=== PATIENT | female | born 1965 | race Caucasian/White ===

== ENCOUNTER 2017-10-17 03:48 | Emergency (ER) | payer SELFPAY ==
--- NOTE | 2017-10-17 04:03 | ED Physician Documentation ---
PD HPI CHEST PAIN - Stated complaint Stated Complaint: SOA,LT BACK,LT SHOULDER PAIN - Chief complaint Chief Complaint: Cardiac - History obtained from History obtained from: Patient - History of Present Illness Timing - onset: Yesterday Timing - onset during: Light activity (carrying basket of laundry) Timing - duration: Minutes Timing - details: Abrupt onset, Intermittant (will last for several minutes at a time. This evening had onset while lying in bed and it lasted about an hour. Sharp pain left chest radiating to back of neck and shoulder. Some dyspnea and pleuritic component, but not strictly with breathing. Some tenderness of chestwall, and left posterior neck hurts with ROM.) Quality: Aching, Sharp Location: Left chest Radiation: Neck (back of neck), Left upper extremity (shoulder) Improved by: Rest Worsened by: Inspiration, Movement (somewhat with neck movement.), Palpation ( there is some tenderness left chestwall parasternal.) Associated symptoms: Shortness of air, Nausea. No: Diaphoresis, Vomiting, Feeling faint / dizzy, General Weakness, Palpitations, Cough Similar symptoms before: Has not had sx before Recently seen: Not recently seen Review of Systems Constitutional: denies: Fever, Chills Nose: denies: Rhinorrhea / runny nose, Congestion Throat: denies: Sore throat Cardiac: reports: Chest pain / pressure, Calf pain (some about 2 weeks ago for few days, without obvious cause. No current problems.). denies: Palpitations, Pedal edema Respiratory: reports: Dyspnea. denies: Cough, Hemoptysis, Wheezing GI: reports: Nausea. denies: Abdominal Pain, Vomiting, Diarrhea Skin: denies: Rash, Lesions Neurologic: reports: Generalized weakness. denies: Focal weakness, Numbness PD PAST MEDICAL HISTORY - Past Medical History Cardiovascular: None Respiratory: None Neuro: None Endocrine/Autoimmune: None - Present Medications Home Medications: Ambulatory Orders Medication Instructions Recorded Confirmed HYDROcod/ACETAM 5/325 [[place] 5/325] 1 tab PO Q6H PRN #15 tablet 10/17/17 Methocarbamol [Robaxin] 500 mg PO Q6H PRN #20 tablet 10/17/17 Naproxen [Naprosyn] 500 mg PO BID #20 tablet 10/17/17 - Allergies Allergies/Adverse Reactions: Allergies Allergy/AdvReac Type Severity Reaction Status Date / Time Penicillins AdvReac Hives Verified 10/17/17 04:02 - Family History Family history: denies: CAD, Sudden , Venous thromboembolism PD ED PE NORMAL - Vitals Vital signs reviewed: Yes - General General: Alert and oriented X 3, Well developed/nourished, Other (seems somewhat in pain, not too distressed. ) - HEENT HEENT: Ears normal, Pharynx benign - Neck Neck: Supple, no meningeal sign, No adenopathy - Cardiac Cardiac: RRR, No murmur - Respiratory Respiratory: No respiratory distress, Clear bilaterally, Other (left chestwall tenderness at lower sternal border) - Abdomen Abdomen: Soft, Non tender - Back Back: No CVA TTP, No spinal TTP - Derm Derm: Normal color, Warm and dry - Extremities Extremities: No deformity, No tenderness to palpate, Normal ROM s pain, No edema , No calf tenderness / cord - Neuro Neuro: Alert and oriented X 3, No motor deficit, Normal speech Results - Vitals Vitals: Vital Signs - 24 hr 10/17/17 10/17/17 03:55 04:19 Temperature 36.5 C Heart Rate 74 Respiratory 22 Rate Blood Pressure 175/126 H Blood Pressure 178/104 H [Left] O2 Saturation 99 Oxygen O2 Source Room air - EKG (time done) 03:55 Rate: Rate (enter#) (71) Rhythm: NSR [place]: Normal Intervals: Normal [place] QRS: Normal Ischemia: Normal ST segments. No: ST elevation c/w ischemia, ST depression - Labs Labs: Laboratory Tests 10/17/17 10/17/17 10/17/17 04:05 04:05 04:05 WBC 11.9 H RBC 4.74 Hgb 15.3 Hct 44.7 MCV 94.2 MCH 32.2 H MCHC 34.2 RDW 13.0 Plt Count 257 MPV 8.2 Neut # 5.8 Lymph # 4.9 H Hale # 0.9 Eos # 0.2 Baso # 0.1 Absolute Nucleated RBC 0.01 Nucleated RBC % 0.1 D-Dimer 284.7 H Sodium 140 Potassium 3.9 Chloride 107 Carbon Dioxide 19 L Anion Gap 14.0 H BUN 18 Creatinine 1.0 Estimated GFR (MDRD) 59 L Glucose 132 H Calcium 10.2 Total Bilirubin 0.4 AST 17 ALT 19 Alkaline Phosphatase 64 Troponin I Total Protein 7.7 Albumin 4.3 Globulin 3.4 Albumin/Globulin Ratio 1.3 Lipase 30 10/17/17 04:05 WBC RBC Hgb Hct MCV MCH MCHC RDW Plt Count MPV Neut # Lymph # Hale # Eos # Baso # Absolute Nucleated RBC Nucleated RBC % D-Dimer Sodium Potassium Chloride Carbon Dioxide Anion Gap BUN Creatinine Estimated GFR (MDRD) Glucose Calcium Total Bilirubin AST ALT Alkaline Phosphatase Troponin I < 0.04 Total Protein Albumin Globulin Albumin/Globulin Ratio Lipase - Rads (name of study) chest Radiology: Prelim report reviewed, EMP read contemporaneously (no acute process) PD MEDICAL DECISION MAKING - ED course Complexity details: reviewed results, considered differential, d/w patient Departure - Departure Disposition: Home, Self Care Clinical Impression: Left-sided chest wall pain Condition: Stable Record reviewed to determine appropriate education?: Yes Instructions: ED Strain Chest Wall Prescriptions: HYDROcod/ACETAM 5/325 [[place] 5/325] 1 tab PO Q6H PRN #15 tablet PRN Reason: Pain Methocarbamol [Robaxin] 500 mg PO Q6H PRN #20 tablet PRN Reason: Spasms Naproxen [Naprosyn] 500 mg PO BID #20 tablet Comments: The tests we did here did not show any signs of heart lung or vascular problems. Presume it is musculoskeletal and treated with anti-inflammatories such as Aleve for naproxen or ibuprofen 2-3 times daily. Add Robaxin muscle relaxant as the worse episodes may relate to spasms. Add Tylenol or hydrocodone if needed for pains. Recheck if not improved over the next 3-5 days with tapering of the amount of pain during that time. Recheck if other symptoms develop along with this.
[2017-10-17] MEDS ORDERED: MORPHINE 10 MG/ML VIAL IVP STA (04:29)
[2017-10-17] MEDS ORDERED: diazePAM INJ 5 MG/ML SYRINGE IVP STA (04:29)
[2017-10-17] MEDS ORDERED: KETOROLAC 60 MG/2 ML VIAL IVP STA (04:29)
[2017-10-17] MEDS ORDERED: LORazepam 2 MG/ML VIAL IVP STA (04:35)
[2017-10-17] MEDS ORDERED: LORazepam 2 MG/ML VIAL ONE (04:40)
[2017-10-17] MEDS ORDERED: MORPHINE 10 MG/ML VIAL ONE (04:41)
[2017-10-17] MEDS ORDERED: KETOROLAC 30 MG/ML VIAL ONE (04:41)
[2017-10-17 04:42] LABS: BASOPHILS # (AUTO) 0.1 10^3/uL (0.0-0.1); BASOPHILS % (AUTO) 0.6 %; EOSINOPHILS # (AUTO) 0.2 10^3/uL (0.0-0.7); EOSINOPHILS % (AUTO) 1.3 %; HCT - HEMATOCRIT 44.7 % (37.0-47.0); HGB - HEMOGLOBIN 15.3 g/dL (12.0-16.0); LYMPHOCYTES # (AUTO) 4.9 10^3/uL (1.5-3.5); LYMPHOCYTES % (AUTO) 41.6 %; MEAN CORPUSCULAR HEMOGLOBIN 32.2 pg (27.0-31.0); MEAN CORPUSCULAR HGB CONC 34.2 g/dL (32.0-36.0); MEAN CORPUSCULAR VOLUME 94.2 fL (81.0-99.0); MEAN PLATELET VOLUME 8.2 fL (7.9-10.8); MONOCYTES # (AUTO) 0.9 10^3/uL (0.0-1.0); MONOCYTES % (AUTO) 7.3 %; NEUTROPHILS # (AUTO) 5.8 10^3/uL (1.5-6.6); NEUTROPHILS % (AUTO) 49.2 %; NUCLEATED RED BLOOD CELLS AUTO 0.1 /100WBC; RED BLOOD COUNT 4.74 10^6/uL (4.20-5.40); UNCORRECTED WHITE BLOOD COUNT 11.9 x10^3/uL; WHITE BLOOD COUNT 11.9 x10^3/uL (4.8-10.8)
[2017-10-17 04:48] LABS: ALBUMIN/GLOBULIN RATIO 1.3 (1.0-2.2); BILIRUBIN,TOTAL 0.4 mg/dL (0.2-1.0); CALCIUM 10.2 mg/dL (8.5-10.3); POTASSIUM 3.9 mmol/L (3.5-5.0); TOTAL PROTEIN 7.7 g/dL (6.7-8.2)
--- NOTE | 2017-10-17 05:03 | XRAY Preliminary Report ---
Exam: XR CHEST 2 VIEW PA/LAT IMPRESSION: No acute cardiopulmonary abnormality demonstrated. [facility] SITE ID: [id number]
--- NOTE | 2017-10-17 05:06 | XRAY Report ---
EXAM: CHEST RADIOGRAPHY EXAM DATE: 10/17/2017 04:45 AM. CLINICAL HISTORY: Left chest pain today. COMPARISON: None. TECHNIQUE: 2 views. FINDINGS: Lungs/Pleura: Small linear scarring within the lung bases. No focal opacities evident. No pleural eff usion. No pneumothorax. Normal volumes. Mediastinum: Heart and mediastinal contours are unremarkable. Other: Right upper quadrant clips indicate prior cholecystectomy. IMPRESSION: No acute cardiopulmonary abnormality demonstrated. [facility] Referring Provider Line: [phone] SITE ID: [id number]
[2017-10-17] MEDS ORDERED: HYDROcod/ACET 5/325 Prepack 6 PO ONE ×2 (05:17→05:27)
[2017-10-17 05:28] VITALS: BP 161/98
== END 2017-10-17 05:41 | disposition home or self-care (01) ==
LOC: ED 03:48
DX: R07.9 Chest pain, unspecified (principal)
CPT/HCPCS: 36415; 71020; 80053; 83690; 84484; 85025; 85379; 93005; 96374; 96375; 99284; J2060

== ENCOUNTER 2017-10-20 14:34 | Emergency (ER) | payer SELFPAY ==
--- NOTE | 2017-10-20 15:20 | XRAY Preliminary Report ---
Exam: XR CHEST 1 VIEW IMPRESSION: No radiographically apparent acute abnormality in the chest. No significant change from p rior. [facility] SITE ID: [id number]
--- NOTE | 2017-10-20 15:22 | XRAY Report ---
EXAM: CHEST RADIOGRAPHY EXAM DATE: 10/20/2017 03:09 PM. CLINICAL HISTORY: Chest pain. COMPARISON: 10/17/2017. TECHNIQUE: 1 view. FINDINGS: Lungs/Pleura: Mild left basilar atelectasis versus scarring. No focal consolidation evident. No pleur al effusion. No pneumothorax. Mediastinum: Within exam limitations, the cardiomediastinal contour is normal. Other: None. IMPRESSION: No radiographically apparent acute abnormality in the chest. No significant change from p rior. [facility] Referring Provider Line: [phone] SITE ID: [id number]
[2017-10-20 15:23] LABS: BASOPHILS % (AUTO) 0.5 %; EOSINOPHILS # (AUTO) 0.1 10^3/uL (0.0-0.7); EOSINOPHILS % (AUTO) 1.1 %; HCT - HEMATOCRIT 42.2 % (37.0-47.0); HGB - HEMOGLOBIN 14.6 g/dL (12.0-16.0); LYMPHOCYTES # (AUTO) 3.4 10^3/uL (1.5-3.5); LYMPHOCYTES % (AUTO) 36.3 %; MEAN CORPUSCULAR HEMOGLOBIN 32.6 pg (27.0-31.0); MEAN CORPUSCULAR HGB CONC 34.6 g/dL (32.0-36.0); MEAN CORPUSCULAR VOLUME 94.2 fL (81.0-99.0); MEAN PLATELET VOLUME 7.6 fL (7.9-10.8); MONOCYTES # (AUTO) 0.6 10^3/uL (0.0-1.0); MONOCYTES % (AUTO) 6.7 %; NEUTROPHILS # (AUTO) 5.2 10^3/uL (1.5-6.6); NEUTROPHILS % (AUTO) 55.4 %; NUCLEATED RED BLOOD CELLS AUTO 0.1 /100WBC; RED BLOOD COUNT 4.48 10^6/uL (4.20-5.40); RED CELL DISTRIBUTION WIDTH 13.2 % (12.0-15.0); UNCORRECTED WHITE BLOOD COUNT 9.4 x10^3/uL; WHITE BLOOD COUNT 9.4 x10^3/uL (4.8-10.8)
[2017-10-20 15:37] LABS: ALBUMIN/GLOBULIN RATIO 1.2 (1.0-2.2); BILIRUBIN,TOTAL 0.5 mg/dL (0.2-1.0); CALCIUM 8.6 mg/dL (8.5-10.3); CREATININE 0.7 mg/dL (0.4-1.0); POTASSIUM 3.7 mmol/L (3.5-5.0); TOTAL PROTEIN 7.1 g/dL (6.7-8.2)
[2017-10-20] MEDS ORDERED: IOPAMIDOL-300 100 ML VIAL ONE (15:58)
--- NOTE | 2017-10-20 16:42 | ED Physician Documentation ---
PD HPI CHEST PAIN - Stated complaint Stated Complaint: CHEST PAIN - Chief complaint Chief Complaint: Cardiac - History obtained from History obtained from: Patient, Family - History of Present Illness Timing - onset: How many days ago (4) Timing - onset during: Rest Timing - duration: Days (4) Timing - details: Gradual onset Pain level max: 0 Pain level now: 0 Quality: Pressure, Pain Location: Left chest Radiation: Neck, Back Improved by: Rest Worsened by: Exertion Associated symptoms: Shortness of air (with exertion), Nausea, Feeling faint / dizzy, General Weakness. No: Diaphoresis, Vomiting, Palpitations, Cough Similar symptoms before: No diagnosis Recently seen: Clinic (seen here several days ago for same.) - Additional information Additional information: Patient is a 52-year-old female who smokes approximately 1 pack per day. No other medical problems, but does not see a doctor. Has had left-sided chest pain for the past 3 days. Describes the pain as heavy and pressure-like. It tends to come on during exertion and resolved with rest. She states that initially when she was seen and was taken about an hour to resolve, however it has become more frequent and resolves quicker though she is taking Vicodin for it as well. Does not recall any injuries. No recent travel. No recent surgery or immobilization. Does not have any history of cardiac disease in the past. Review of Systems Ten Systems: 10 systems reviewed and negative Constitutional: denies: Fever, Chills Ears: denies: Ear pain Nose: denies: Rhinorrhea / runny nose, Congestion Throat: denies: Sore throat Cardiac: denies: Palpitations Respiratory: denies: Cough, Hemoptysis, Wheezing GI: denies: Abdominal Pain, Nausea, Vomiting, Diarrhea Skin: denies: Rash Musculoskeletal: denies: Neck pain, Back pain Neurologic: denies: Headache PD PAST MEDICAL HISTORY - Past Medical History Cardiovascular: None Respiratory: None Neuro: None Endocrine/Autoimmune: None GI: GERD, Cholelithiasis Psych: Depression, Anxiety Musculoskeletal: Chronic back pain - Past Surgical History Past Surgical History: Yes General: Cholecystectomy /DIPPER AND DRIER: section, Tubal ligation - Allergies Allergies/Adverse Reactions: Allergies Allergy/AdvReac Type Severity Reaction Status Date / Time Penicillins AdvReac Hives Verified 10/20/17 15:58 - Social History Does the pt smoke?: Yes Smoking Status: Current every day smoker Does the pt drink ETOH?: Yes Does the pt have substance abuse?: Yes - Immunizations Immunizations are current?: Yes Immunizations: TDAP >10years/unknown - POLST Patient has POLST: No PD ED PE NORMAL - Vitals Vital signs reviewed: Yes - General General: Alert and oriented X 3, No acute distress - HEENT HEENT: Moist mucous membranes - Neck Neck: Supple, no meningeal sign - Cardiac Cardiac: RRR, Strong equal pulses - Respiratory Respiratory: No respiratory distress, Clear bilaterally - Abdomen Abdomen: Soft, Non tender, Non distended - Back Back: No spinal TTP - Derm Derm: Warm and dry, No rash - Neuro Neuro: Alert and oriented X 3 - Psych Psych: Normal mood, Normal affect Results - Vitals Vitals: Vital Signs - 24 hr 10/20/17 10/20/17 10/20/17 14:37 14:48 15:53 Temperature 36.3 C L 36.4 C L Heart Rate 94 73 Respiratory 18 12 Rate Blood Pressure 155/93 H 145/83 H O2 Saturation 99 98 10/20/17 16:19 Temperature Heart Rate 74 Respiratory 16 Rate Blood Pressure 134/94 H O2 Saturation 100 Oxygen O2 Source Room air - EKG (time done) 1447 Rate: Rate (enter#) (86) Rhythm: NSR [place]: Normal Intervals: Normal [place] QRS: Normal Ischemia: Normal ST segments Compare to prior EKG: Unchanged from prior EKG - Labs Labs: Laboratory Tests 10/20/17 10/20/17 10/20/17 15:15 15:15 15:15 WBC 9.4 RBC 4.48 Hgb 14.6 Hct 42.2 MCV 94.2 MCH 32.6 H MCHC 34.6 RDW 13.2 Plt Count 221 MPV 7.6 L Neut # 5.2 Lymph # 3.4 [place] # 0.6 Eos # 0.1 Baso # 0.0 Absolute Nucleated RBC 0.01 Nucleated RBC % 0.1 Sodium 137 Potassium 3.7 Chloride 105 Carbon Dioxide 23 Anion Gap 9.0 BUN 20 Creatinine 0.7 Estimated GFR (MDRD) 89 Glucose 123 H Calcium 8.6 Total Bilirubin 0.5 AST 19 ALT 18 Alkaline Phosphatase 63 Troponin I 0.46 Total Protein 7.1 Albumin 3.9 Globulin 3.2 Albumin/Globulin Ratio 1.2 Lipase 24 - Rads (name of study) cxr Radiology: Prelim report reviewed, EMP read contemporaneously, See rad report ( no acute disease) CTPA Radiology: Prelim report reviewed, EMP read contemporaneously, See rad report ( normal, no PE) PD MEDICAL DECISION MAKING - ED course Complexity details: reviewed results, re-evaluated patient, considered differential (No ST elevation [place], no aortic dissection, no PE, no tension pneumothorax, no aortic aneurysm), d/w patient, d/w family, d/w programmer analyst consultant ( [phone] - Dr. Hoffman (hospitalist at [facility])) ED course: Patient is a 52-year-old female who presents to the emergency department with chest pain for the past 3 days. Found to have an elevated troponin. Concern for non-ST elevation DE. Was concerned about a possible pulmonary embolus as the prior ED no noted calf pain 2 weeks ago, CT pulmonary angiogram is normal. EKG does not have any acute findings. Pain fully resolved with nitroglycerin in the emergency department. She was also given aspirin 324 mg p.o. in the emergency department. She was started on a heparin drip and will be transferred to [facility] acute hospital for further evaluation and care. Discussed the case with Dr. Reyes, hospitalist who graciously accepts in transfer. This document was made in part using voice recognition software. While efforts are made to proofread this document, sound alike and grammatical errors may occur. Departure - Departure Disposition: 02 Transfer Acute Care Hosp Clinical Impression: NSTEMI (non-ST elevated myocardial infarction) Condition: Stable
[2017-10-20] MEDS ORDERED: HEPARIN 25,000 UNITS/500 ML NS 25,000 UNIT/500 ML BAG IV STA (16:43)
[2017-10-20] MEDS ORDERED: HEPARIN 5,000 UNIT/ML VIAL IVP STA (16:43)
[2017-10-20] MEDS ORDERED: ASPIRIN CHEW 81 MG TABLET PO STA (16:44)
[2017-10-20] MEDS ORDERED: NITROGLYCERIN SL 0.4 MG TABLET SL STA (16:46)
[2017-10-20] MEDS ORDERED: IOPAMIDOL-300 100 ML VIAL IVP ONE (16:47)
--- NOTE | 2017-10-20 17:21 | CT Preliminary Report ---
Exam: CT CHEST ANGIO (PE) IMPRESSION: Normal pulmonary CT angiogram. No pulmonary emboli. [facility] SITE ID: [id number]
--- NOTE | 2017-10-20 17:27 | CT Report ---
EXAM: CT ANGIOGRAM CHEST EXAM DATE: 10/20/2017 04:48 PM. CLINICAL HISTORY: Chest pain, dyspnea. COMPARISON: None. TECHNIQUE: Routine helical imaging was performed through the chest in the pulmonary arterial phase. I V Contrast: 80 mL Isovue-300. Reconstructions: Coronal 3-D MIP reconstructions.Sagittal and coronal. In accordance with CT protocol optimization, one or more of the following dose reduction techniques w ere utilized for this exam: automated exposure control, adjustment of mA and/or KV based on patient s ize, or use of iterative reconstructive technique. FINDINGS: Pulmonary Arteries: Diagnostic quality: Adequate through the segmental arteries. No evidence for acute or chronic pulmona ry emboli. RV/LV is within normal limits. There is no interventricular septal bowing. There is no reflux of cont rast material in the IVC. Lungs/Pleura: Emphysematous changes. 3 mm calcified granuloma in the left upper lobe. No consolidatio n, nodules, or edema. No effusions or pneumothorax. Mediastinum: Normal. No cardiac enlargement or adenopathy. Thoracic Aorta: Unremarkable. Upper Abdomen: Cholecystectomy. Calcified granulomata in the liver. Colonic diverticulosis. Other: None. IMPRESSION: Normal pulmonary CT angiogram. No pulmonary emboli. [facility] Referring Provider Line: [phone] SITE ID: [id number]
[2017-10-20 18:42] VITALS: BP 140/76
== END 2017-10-20 18:55 | disposition short-term general hospital (02) ==
LOC: ED 14:34
DX: I21.4 Non-ST elevation (NSTEMI) myocardial infarction (principal); K21.9 Gastro-esophageal reflux disease without esophagitis; F17.200 Nicotine dependence, unspecified, uncomplicated
CPT/HCPCS: 36415; 71010; 71275; 80053; 83690; 84484; 85025; 93005; 96365; 96376; 99284; 99285; A9270; Q9967

== ENCOUNTER 2017-10-20 18:55 | Outpatient (CLI) | payer SELFPAY | END 2017-10-20 18:56 | disposition short-term general hospital (02) | LOC: EMS 18:55 | PROVIDERS: ATTEND Surgery | DX: I21.4 Non-ST elevation (NSTEMI) myocardial infarction (principal) | CPT/HCPCS: A0425; A0426 ==

== ENCOUNTER 2024-07-17 12:00 | Outpatient (CLI) | payer MEDICAID ==
--- NOTE | 2024-07-17 16:13 | XRAY Report ---
PROCEDURE: Wrist 3+V LT INDICATIONS: PAIN IN LEFT WRIST TECHNIQUE: 3 views of the wrist were acquired. COMPARISON: None. FINDINGS: Bones: No fractures or dislocations. No suspicious bony lesions. Soft tissues: No suspicious soft tissue calcifications or masses. IMPRESSION: No visualized acute fracture or dislocation. However, occult injury cannot be excluded. Recommend yanna rt interval imaging follow-up in 7-10 days as clinically indicated for additional evaluation. Reviewed by: Susan Rivera MD on 07/17/2024 4:12 PM PDT Approved by: Susan Rivera MD on 07/17/2024 4:12 PM PDT Station ID: [id number]
== END 2024-07-22 12:15 | disposition home or self-care (01) ==
LOC: DI.N 12:00
PROVIDERS: ATTEND Physician Assistant Medical
DX: M25.532 Pain in left wrist (principal)